=== PATIENT | male | born 1980 | race Caucasian/White ===

== ENCOUNTER 2021-11-14 20:48 | Emergency (ER) | payer SELFPAY ==
[2021-11-14 21:11] VITALS: BP 151/92; PULSE 61; RESP 16; TEMP 37.2; O2SAT 91; BMI 36.5
[2021-11-14 21:14] VITALS: BP 142/89; PULSE 69; RESP 20; O2SAT 92
[2021-11-14 21:35] LABS: Basophils % 0.2 %; Eosinophils % 0.2 %; Hematocrit 46.7 % (42.0-52.0); Lymphocytes # 1.3 10^3/uL (0.8-4.8); Lymphocytes % 7.8 %; Mean Corpuscular HGB Conc 34.3 g/dL (30.0-36.0); Mean Corpuscular Hemoglobin 31.5 pg (28.0-34.0); Mean Corpuscular Volume 91.9 fl (80-94); Mean Platelet Volume 9.7 fL (7.4-10.4); Monocytes # 0.5 10^3/uL (0.2-0.9); Monocytes % 2.9 %; Neutrophils # 14.71 10^3/uL (1.8-7.7); Neutrophils % 88.4 %; Nucleated Red Blood Cells % 0 %; Platelet Count 290 10^3/cmm (130-400); Red Blood Count 5.08 10^6/uL (4.1-5.3); Red Cell Distribution Width 11.9 % (12.1-15.1); White Blood Count 16.6 10^3/uL (4.0-10.0)
--- NOTE | 2021-11-14 21:54 | CTR_ITS ---
PROCEDURE INFORMATION: Exam: CT Abdomen And Pelvis Without Contrast Exam date and time: 11/14/2021 10:02 PM Age: 41 years old Clinical indication: Abdominal pain; Patient HX: C/O left flank pain; Additional info: Left flank pain-renal colic TECHNIQUE: Imaging protocol: Computed tomography of the abdomen and pelvis without contrast. Radiation optimization: All CT scans at this facility use at least one of these dose optimization techniques: automated exposure control; mA and/or kV adjustment per patient size (includes targeted exams where dose is matched to clinical indication); or iterative reconstruction. COMPARISON: MR lumbar spine wo con* [id number] 2016-12-18 09:06 RADIATION DOSE METRICS: Total DLP (mGy-cm): 887.81 FINDINGS: Lungs: Pulmonary granulomas and mild scarring or atelectasis in the lung bases. Liver: Normal. No mass. Gallbladder and bile ducts: Normal. No calcified stones. No ductal dilation. Pancreas: Normal. No ductal dilation. Spleen: Normal. No splenomegaly. Adrenal glands: Normal. No mass. Kidneys and ureters: Left pelvic ureteral 4 mm obstructing calculus with mild left hydroureter and hydronephrosis. Additional nonobstructing bilateral renal calculi. Stomach and bowel: Uncomplicated mild diverticulosis coli. Appendix: No evidence of appendicitis. Intraperitoneal space: Unremarkable. No free air. No significant fluid collection. Vasculature: Unremarkable. No abdominal aortic aneurysm. Lymph nodes: Unremarkable. No enlarged lymph nodes. Urinary bladder: Unremarkable as visualized. Reproductive: Unremarkable as visualized. Bones/joints: Grade 1/2 L5 spondylolysis with anterolisthesis and moderate severe subarticular and foraminal stenosis at L5-S1. Soft tissues: Unremarkable. CT/CT abdomen pelvis wo con [id number] IMPRESSION: Left pelvic ureteral 4 mm obstructing calculus with mild left hydroureter and hydronephrosis. Additional nonobstructing bilateral renal calculi.
--- NOTE | 2021-11-14 21:55 | W.ED.BACK ---
HPI - Back Pain/Injury General: Chief Complaint: Back Pain/Injury Stated Complaint: left flank pain Time Seen by Provider: 11/14/21 21:18 Source: patient and family Mode of arrival: ambulatory Limitations: no limitations History of Present Illness: This patient presents to the emergency department because of concerns about left back and flank pain. He states the pain began earlier today. He states he has had 2 bowel movements yesterday and 2 bowel movements today and wondered if those were related to his symptoms. He states there is no blood in his stool. He states that the pain is predominantly on the left back and radiates around to his left abdomen. He denies any injury. He denies any lifting falls etc. He is a compress trucker but drives locally only. He does not do any unloading or loading. He does admit he does not drink much in the way of water on a regular basis. He denies any known blood in his urine. He denies any fevers or chills. He denies any weakness or numbness or loss of bowel or bladder control. He is not an IV drug user, no history of cancer, no night sweats weight loss etc. Does have a positive family history of kidney stones. Associated symptoms: Deny chills or fever(s) Review of Systems Const: Denies: fever(s) or chills Eyes: Denies: change in vision ENMT: Denies: throat pain or odynophagia Course Reevaluation(s): Reevaluation #1: Patient is very comfortable. Denies any new or worsening symptoms. Is drinking fluids without difficulty. I discussed current findings and expected course with both he and his family. He does have a 4 mm distal stone which is obstructing however he does not have any signs of renal dysfunction, infection etc. so I think it is reasonable for us to discharge him on Flomax ketorolac with urology follow-up. We also discussed return precautions for returning to the emergency department with both he and family. They voiced understanding. Time: 23:34 Vital Signs: Vital signs: Vital Signs Temperature 98.9 F 11/14/21 21:11 Pulse Rate 102 H 11/14/21 22:44 Respiratory Rate 16 11/14/21 22:44 Blood Pressure 152/89 11/14/21 22:44 Pulse Oximetry 92 11/14/21 21:14 Oxygen Delivery Me thod 11/14/21 21:14 MDM - Back Pain/Injury Medical Decision Making Patient presents to the emergency department with left flank pain suggestive of renal colic given history and no other clinical findings at this time. Urinalysis as well as imaging confirm distal ureter ureteral stone on the left. No evidence of an infection as he has intact renal function at this time. He will be discharged to outpatient follow-up with return precautions. Labs : 11/14/21 21:20 11/14/21 21:20 Radiology Impressions Abdomen/Pelvis CT 11/14/21 21:54 IMPRESSION: Left pelvic ureteral 4 mm obstructing calculus with mild left hydroureter and hydronephrosis. Additional nonobstructing bilateral renal calculi. Laboratory Results WBC 16.6 10^3/uL (4.0-10.0) H 11/14/21 21:20 RBC 5.08 10^6/uL (4.1-5.3) 11/14/21 21:20 Hgb 16.0 g/dL (11.7-16.6) 11/14/21 21:20 Hct 46.7 % (42.0-52.0) 11/14/21 21:20 MCV 91.9 fl (80-94) 11/14/21 21:20 MCH 31.5 pg (28.0-34.0) 11/14/21 21:20 MCHC 34.3 g/dL (30.0-36.0) 11/14/21 21:20 RDW 11.9 % (12.1-15.1) L 11/14/21 21:20 Plt Count 290 10^3/cmm (130-400) 11/14/21 21:20 MPV 9.7 fL (7.4-10.4) 11/14/21 21:20 Neut % (Auto) 88.4 % 11/14/21 21:20 Lymph % (Auto) 7.8 % 11/14/21 21:20 Cass % (Auto) 2.9 % 11/14/21 21:20 Eos % (Auto) 0.2 % 11/14/21 21:20 Baso % (Auto) 0.2 % 11/14/21 21:20 Neut # (Auto) 14.71 10^3/uL (1.8-7.7) H 11/14/21 21:20 Lymph # (Auto) 1.3 10^3/uL (0.8-4.8) 11/14/21 21:20 Cass # (Auto) 0.5 10^3/uL (0.2-0.9) 11/14/21 21:20 Eos # (Auto) 0.0 10^3/uL (0.0-0.8) 11/14/21 21:20 Baso # (Auto) 0.0 10^3/uL (0.0-0.1) 11/14/21 21:20 Nucleated RBC % (auto) 0 % 11/14/21 21:20 Nucleated RBCs # 0.0 /100WBC 11/14/21 21:20 Sodium 139 mmol/L (136-145) 11/14/21 21:20 Potassium 4.3 mmol/L (3.5-5.1) 11/14/21 21:20 Chloride 101 mmol/L (98-107) 11/14/21 21:20 Carbon Dioxide 25 mmol/L (22-29) 11/14/21 21:20 Anion Gap 17.3 (5-19) 11/14/21 21:20 BUN 13 mg/dL (6-20) 11/14/21 21:20 Creatinine 1.0 mg/dL (0.7-1.2) 11/14/21 21:20 GFR Calculation 82.3 mL/min (90-130) L 11/14/21 21:20 Glucose 128 mg/dL (65-115) H 11/14/21 21:20 Calculated Osmolality 290 mOsm/kg (285-295) 11/14/21 21:20 Calcium 9.3 mg/dL (8.5-10.5) 11/14/21 21:20 Total Bilirubin 0.3 mg/dL (0.15-1.2) 11/14/21 21:20 AST 25 U/L (0-40) 11/14/21 21:20 ALT 31 U/L (0-41) 11/14/21 21:20 Alkaline Phosphatase 99 U/L (40-130) 11/14/21 21:20 Total Protein 7.5 g/dL (6.6-8.7) 11/14/21 21:20 Albumin 4.6 g/dL (3.5-5.2) 11/14/21 21:20 Globulin 2.9 g/dL (1.3-4.6) 11/14/21 21:20 Lipase 49 U/L (13-60) 11/14/21 21:20 Urine Color Dark yellow (Yellow) 11/14/21 21:20 Urine Appearance Sl hazy (CLEAR) 11/14/21 21:20 Urine pH 5 (5-7) 11/14/21 21:20 Ur Specific [place] 1.020 (1.005-1.030) 11/14/21 21:20 Urine Protein Trace (Negative) 11/14/21 21:20 Urine Glucose (UA) Norm (Normal) 11/14/21 21:20 Urine Ketones 1+ (Negative) H 11/14/21 21:20 Urine Blood 3+ (Negative) H 11/14/21 21:20 Urine Nitrate Negative (Negative) 11/14/21 21:20 Urine Bilirubin Neg (Negative) 11/14/21 21:20 Urine Urobilinogen Norm mg/dL (Negative) 11/14/21 21:20 Ur Leukocyte Esterase Negative (Negative) 11/14/21 21:20 Urine RBC Too numerous to cnt /hpf (0-2) H 11/14/21 21:20 Urine WBC 0-4 /hpf (0-5) H 11/14/21 21:20 Ur Squamous Epith Cells 0-4 /hpf (0-5) H 11/14/21 21:20 Amorphous Sediment Not Reportable 11/14/21 21:20 Urine Bacteria Trace /hpf (NONE) 11/14/21 21:20 Discharge Plan Discharge Patient Disposition: Home Clinical Impression: Renal colic Condition: Stable Prescriptions: New tamsulosin [Flomax] 0.4 mg capsule 0.4 mg PO DAILY Qty: 7 0RF ketorolac 10 mg tablet 10 mg PO Q8H 4 Days Qty: 12 0RF Discharge Orders: Discharge ED (Routine); Ordered 11/14/21 Ordered By: Roberto Saini Discharge Diet: Usual diet Discharge Activity: Increase activity as tolerated Patient Instructions: Abdominal Pain (ED), Opioid Safety, Pain Management Activity Restrictions/Additional Instructions: Make sure you drink at least 2 quarts of water daily in addition to her other usual intake. Take the Flomax once daily as prescribed. You may use the Toradol as needed if you have pain. Should you develop fever, increasing pain, inability to tolerate medications or other concerning symptoms return to this emergency department immediately. You will be contacted for urology follow-up within the next week. Coding Level of Care Code ED [employer] Adviser for Nicole Dominique
[2021-11-14 22:02] LABS: Alanine Aminotransferase 31 U/L (0-41); Albumin Level 4.6 g/dL (3.5-5.2); Alkaline Phosphatase 99 U/L (40-130); Aspartate Amino Transferase 25 U/L (0-40); Blood Urea Nitrogen 13 mg/dL (6-20); Calcium 9.3 mg/dL (8.5-10.5); Carbon Dioxide 25 mmol/L (22-29); Chloride 101 mmol/L (98-107); Globulin 2.9 g/dL (1.3-4.6); Glomerular Filtration Rate 82.3 mL/min (90-130); Glucose 128 mg/dL (65-115); Lipase 49 U/L (13-60); Osmolality Calculated 290 mOsm/kg (285-295); Sodium 139 mmol/L (136-145); Total Bilirubin 0.3 mg/dL (0.15-1.2); Total Protein 7.5 g/dL (6.6-8.7)
[2021-11-14 22:07] LABS: Urine Color Dark Yellow (Yellow)
[2021-11-14 22:08] LABS: Add Urine Microscopic? YES; Bilirubin Urine Neg (Negative); Blood Urine 3+ (Negative); Glucose Urine UA Norm (Normal); Ketones Urine 1+ (Negative); Leukocyte Esterase Urine Negative (Negative); Nitrate Urine Negative (Negative); Protein Urine Trace (Negative); Urine Appearance SL Hazy (CLEAR); Urobilinogen Urine Norm (Negative); pH Urine 5 (5-7)
[2021-11-14 22:10] LABS: RBC Urine TOO NUMEROUS TO CNT /hpf (0-2); Squamous Epithelial Cell Urine 0-4 /hpf (0-5); WBC Urine 0-4 /hpf (0-5)
[2021-11-14 22:11] LABS: Add Urine Culture? No; Bacteria Urine TRACE /hpf
[2021-11-14 22:21] LABS: Anion Gap 17.3 (5-19); Potassium 4.3 mmol/L (3.5-5.1)
[2021-11-14 22:44] VITALS: BP 152/89; PULSE 102; RESP 16
[2021-11-14] MEDS: tamsulosin 0.4 mg Capsule PO (23:19)
[2021-11-14] MEDS: ketorolac 30 mg/mL INJ 15 MG IVP (23:19)
[2021-11-14 23:51] VITALS: BP 152/89; PULSE 102; RESP 16
--- NOTE | 2021-11-15 11:10 | DCPLANNER ---
Addendum entered by Araceli Bear 12/13/21 12:56: Patient had a follow up appointment scheduled for 12.01.21 with urology - patient did attend appointment. Addendum entered by Araceli Bear 11/21/21 14:29: Patient has a follow up appointment scheduled for Wednesday, December 01, 2021 at 12:[address] Conti at urology. Clinic will call patient with appointment information. Original Note: protection manager had message to schedule a follow up appointment for patient with urology. protection manager sent patients information to the front office staff at urology. Patients information will be printed and reviewed. Clinic will call patient with appointment information.
== END 2021-11-14 23:53 | disposition home or self-care (01) ==
PROVIDERS: Physician Assistant; Emergency Provider Emergency Medicine
DX: N23 Unspecified renal colic (principal)
CPT/HCPCS: 74176; 80053; 81001; 83690; 85025; 96374; 99285; J1885

== ENCOUNTER 2021-12-01 11:05 | Outpatient (CLI) | payer SELFPAY ==
--- NOTE | 2021-12-01 11:21 | XR_ITS ---
WS: [id number] XR KUB [id number] REASON FOR EXAM: Renal Colic FINDINGS: The bilateral intrarenal calculi and the distal left ureteral calculi demonstrated on CT scan of 11/14 are not identifiable on the current examination. Mild gaseous distention of several small bowel loops and a segment of transverse colon. No free air or retroperitoneal air. No mass identified. XR/XR KUB [id number] IMPRESSION: No urinary tract calculi identified as above.
== END 2021-12-01 11:06 | disposition home or self-care (01) ==
PROVIDERS: Visit Provider Urology
DX: N23 Unspecified renal colic (principal)
CPT/HCPCS: 74018

== ENCOUNTER 2021-12-18 12:33 | Outpatient (CLI) | payer SELFPAY ==
--- NOTE | 2021-12-18 13:22 | XR_ITS ---
WS: [id number] Exam: XR KUB [id number] Date/Time of Exam: 12/18/2021 1:23 PM Reason For Exam: STONES Mild ileus noted. No bowel obstruction or free air. Organ margins are obscured by bowel gas and stool . Bony structures are intact. XR/XR KUB [id number] IMPRESSION: 1. Mild ileus. No other significant finding.
== END 2021-12-18 12:34 | disposition home or self-care (01) ==
LOC: RAD 12:34
PROVIDERS: Visit Provider Urology
DX: N20.1 Calculus of ureter (principal); K56.7 Ileus, unspecified
CPT/HCPCS: 74018; 81003